=== PATIENT | male | born 1985 | race Caucasian/White ===

== ENCOUNTER 2023-02-06 13:30 | Emergency (ER) | payer BC, OTHER ==
[2023-02-06 13:41] VITALS: TEMP 97.9
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
[2023-02-06 15:16] VITALS: BP 118/73; PULSE 60; RESP 18
== END 2023-02-06 15:16 | disposition home or self-care (01) ==
LOC: EC 13:30
DX: S09.90XA Unspecified injury of head, initial encounter (principal); R40.2410 Glasgow coma scale score 13-15, unspecified time; V49.9XXA Car occupant (driver) (passenger) injured in unspecified traffic accident, initial encounter; Y92.410 Unspecified street and highway as the place of occurrence of the external cause; Y93.01 Activity, walking, marching and hiking
CPT/HCPCS: 70450; 99284